=== PATIENT | male | born 1985 | race Caucasian/White ===

== ENCOUNTER 2017-04-12 15:29 | Emergency (ER) | payer SELFPAY | END 2017-04-12 16:22 | disposition home or self-care (01) | LOC: ERS 15:29 | DX: Z20.2 Contact with and (suspected) exposure to infections with a predominantly sexual mode of transmission (principal); F31.9 Bipolar disorder, unspecified; F41.9 Anxiety disorder, unspecified | CPT/HCPCS: 99282 ==